=== PATIENT | female | born 1995 | race Hispanic/Latino ===

== ENCOUNTER 2019-02-11 21:05 | Emergency (ER) | payer OTHER ==
[2019-02-11 21:22] VITALS: BP 114/81; PULSE 86; TEMP 98.5; O2SAT 95
[2019-02-11] MEDS ORDERED: Lidocaine 2% Inj (20ml) INFIL STA (21:46)
--- NOTE | 2019-02-11 21:47 | C.PDOC ---
History Of Present Illness 23 y/o female presents to the ED with a laceration to left palm after cutting it with a kitchen knife. She denies any pain now or any numbness or tingling. Denies any active bleeding, States tetanus vaccination is up to date. Patient is right-handed. No other complaints at this time. Time Seen by Provider: 02/11/19 21:44 Chief Complaint (Nursing): Abnormal Skin Integrity History Per: Patient History/Exam Limitations: no limitations Onset/Duration Of Symptoms: Hrs Current Symptoms Are (Timing): Still Present Past Medical History Reviewed: Historical Data, Nursing Documentation, Vital Signs Vital Signs: Last Vital Signs Temp 98.5 F 02/11/19 21:19 Pulse 86 02/11/19 21:19 Resp 16 02/11/19 21:19 BP 114/81 02/11/19 21:19 Pulse Ox 95 02/11/19 21:19 Primary Care Provider: Aimee Pereyra Family History: States: No Known Family Hx - Social History Hx Alcohol Use: Yes Hx Substance Use: Yes Review Of Systems Except As Marked, All Systems Reviewed And Found Negative. Constitutional: Negative for: Fever, Chills Respiratory: Negative for: Cough, Shortness of Breath Gastrointestinal: Negative for: Nausea, Vomiting Skin: Positive for: Other (laceration to left palm) Neurological: Negative for: Weakness, Numbness Physical Exam - Physical Exam Appears: Well, Non-toxic, No Acute Distress Skin: Warm, Dry Head: Atraumatic, Normacephalic Eye(s): bilateral: Normal Inspection Oral Mucosa: Moist Neck: Supple Respiratory: Other (Respirations regular and unlabored.) Extremity: Normal ROM, No Tenderness, No Swelling, Other (2.5cm laceration to the palmar aspect of left hand, near the base of the 5th metacarpal) Extremity: Bilateral: Normal Color And Temperature, Normal ROM Pulses: Left Radial: Normal, Right Radial: Normal Neurological/Psych: Oriented x3, Normal Speech ED Course And Treatment O2 Sat by Pulse Oximetry: 95 (RA) Pulse Ox Interpretation: Normal Laceration - Laceration Repair Left Hand Wound Length (In cm): 2.5 Description Of Wound: Linear Wound Cleansed With: Betadine, Sterile Saline Anesthesia: Lidocaine 2% Wound Examination: Irrigated With Saline, No FB With Wound Exploration, No Tendon Injury With Wound Exploration Wound Closure: Suture (5 of 4-0 nylon) Suture Technique And Material Used: Interrupted Wound Complexity: Simple Medical Decision Making Medical Decision Making: Wound repaired. Follow-up discussed. Disposition Counseled Patient/Family Regarding: Diagnosis, Need For Followup - Disposition Referrals: Aimee Pereyra MD [Staff Provider] - Disposition: HOME/ ROUTINE Disposition Time: 22:15 Condition: GOOD Additional Instructions: Follow up with your PMD. Sutures need to be removed in 7-10 days by PMD or ER. Do not get area wet for 24 hours then you may wash wound twice daily with warm soapy water. Apply antibiotic ointment and bandage. Have wound check with your doctor. Return if symptoms worsen or persist. Instructions: Laceration Repair, Wound Care (DC) Forms: [facility] (Albanian), General Discharge Instructions Print Language: ITALIAN - Clinical Impression Clinical Impression: Laceration of hand - PA / JAWBONE PULLER / Resident Statement MD/DO has reviewed & agrees with the documentation as recorded. - Scribe Statement The provider has reviewed the documentation as recorded by the Scribmarisela Mitchell All medical record entries made by the Mattibmarisela were at my direction and personally dictated by me. I have reviewed the chart and agree that the record accurately reflects my personal performance of the history, physical exam, medical decision making, and the department course for this patient. I have also personally directed, reviewed, and agree with the discharge instructions and disposition.
[2019-02-11] MEDS ORDERED: Lidocaine 2% MPF (5 ml) Inj ONE (21:55)
[2019-02-11] MEDS ORDERED: Bacitracin 500 Units/gm Oint Foilpak UD TOP STA (22:12)
[2019-02-11] MEDS ORDERED: Bacitracin 500 Units/gm Oint Foilpak UD ONE (22:17)
[2019-02-11 22:26] VITALS: RESP 20
== END 2019-02-11 22:25 | disposition home or self-care (01) ==
LOC: C.ER 21:05
DX: S61.412A Laceration without foreign body of left hand, initial encounter (principal); W26.0XXA Contact with knife, initial encounter